=== PATIENT | male | born 1940 | race Caucasian/White ===

== ENCOUNTER 2017-06-29 10:09 | Day surgery (SDC) | payer OTHER ==
[2017-06-29] MEDS ORDERED: ceFAZolin 2 GM/SWFI 2 GM/20 ML SYR IVP ONE (10:35)
[2017-06-29] MEDS ORDERED: LR 1,000 ML IV ONE (10:36)
[2017-06-29 10:42] VITALS: PULSE 86
[2017-06-29] MEDS ORDERED: MINERAL OIL 10 ML VIAL ONE (11:42)
[2017-06-29] MEDS ORDERED: BUPIVACAINE 0.5% 30 ML SDV ONE (11:42)
[2017-06-29] MEDS ORDERED: THROMBIN (BOVINE) 20,000 UNIT SPRAY TP ONE (11:42)
--- NOTE | 2017-06-29 13:31 | PDHPUP ---
History & Physical Update H&P update statement: This history and physical update is based on an assessment of the patient which was completed after admission or registration (within 24 hours), but prior to the surgery/procedure. H&P update: H&P reviewed & patient examined, no change in patient's condition since H&P completed
--- NOTE | 2017-06-29 14:29 | PDANEPAE ---
ANE History of Present Illness debridement of R ankle wound ANE Past Medical History - Cardiovascular History Hx Hypertension: No Hx Arrhythmias: No Hx Chest Pain: No Hx Coronary Artery / Peripheral Vascular Disease: No Hx CHF / Valvular Disease: No Hx Palpitations: No - Pulmonary History Hx COPD: No Hx Asthma/Reactive Airway Disease: No Hx Recent Upper Respiratory Infection: No Hx Oxygen in Use at Home: No Hx Sleep Apnea: No Sleep Apnea Screening Result - Last Documented: Negative - Neurologic History Hx Cerebrovascular Accident: No Hx Seizures: No Hx Dementia: No - Endocrine History Hx Diabetes: No Hypothyroid: No Obesity: no - Renal History Hx Renal Disorders: No - Liver History Hx Hepatic Disorders: No - Neurological & Psychiatric Hx Hx Neurological and Psychiatric Disorders: No - Cancer History Hx Cancer: No - Congenital Disorder History Hx Congenital Disorders: No - GI History GERD: no Hx Gastrointestinal Disorders: No Gastrointestinal History Comment: HX OF COLONOSCOPIES - Other Health History Other Health History: WEARS GLASSES. rheumatoid arthritis. PRP - Chronic Pain History Chronic Pain: No - Surgical History Prior Surgeries: COLONOSCOPIES. CATARACT SURGERY 2014- RIGHT. HERNIA REPAIR X2 1992, 2005 ANE Review of Systems Review of Systems: - Exercise capacity METS (RN): 4 METS ANE Patient History - Allergies Allergies/Adverse Reactions: No Known Allergies Allergy (Verified 06/28/17 11:09) - Home Medications Home Medications: Methotrexate 06/28/17 [Last Taken Unknown] - NPO status NPO Since - Liquids (Date): 06/29/17 NPO Since - Liquids (Time): 08:00 NPO Since - Solids (Date): 06/28/17 NPO Since - Solids (Time): 22:00 - Anes Hx Anes Hx: no prior problems - Smoking Hx Smoking Status: Former smoker - Alcohol Use Alcohol Use: Rarely - Family Anes Hx Family Anes Hx: none Family Hx Anesthesia Complications: NONE ANE Labs/Vital Signs - Vital Signs Blood Pressure: 150/95 Heart Rate: 86 Respiratory Rate: 18 O2 Sat (%): 96 Height: 173.36 cm Weight: 69.853 kg ANE Physical Exam - Airway Mallampati Score: Class 1 Mouth exam: normal dental/mouth exam - Pulmonary Pulmonary: clear to auscultation - Cardiovascular Cardiovascular: regular rate and rhythym - ASA Status ASA Status: III ANE Anesthesia Plan Anesthesia Plan: GA w LMA
[2017-06-29] MEDS ORDERED: PROPOFOL 200 MG/20 ML VIAL ONE ×2 (14:50→15:02)
[2017-06-29] MEDS ORDERED: fentaNYL 100 MCG/2 ML INJ ONE (14:50)
[2017-06-29] MEDS ORDERED: DEXAMETHASONE 4 MG/ML VIAL ONE (14:51)
[2017-06-29] MEDS ORDERED: ONDANSETRON 4 MG/2 ML VIAL ONE (15:11)
[2017-06-29] MEDS ORDERED: PHENYLEPHRINE HCL 100 MCG/ML SYR ONE (15:18)
[2017-06-29] MEDS ORDERED: HYDROCODONE/APAP 5/325 TAB PO PRN (15:21)
[2017-06-29] MEDS ORDERED: NALOXONE HCL 0.4 MG/ML INJ IVP PRN (15:21)
[2017-06-29] MEDS ORDERED: fentaNYL 100 MCG/2 ML INJ IVP PRN (15:21)
--- NOTE | 2017-06-29 15:26 | POSTOPPROG ---
Post Op Note Date of Operation: 06/29/17 Surgeon: Rehana Atkinson Anesthesiologist: guevara Anesthesia: GET(General Endotracheal) Pre-op Diagnosis: chronic traumatic wound lle Post-op Diagnosis: same Indication: 77 yo with chronic traumatic wound Procedure: debride and stsg Findings: 6x4x0.5 Inf/Abcess present in the surg proc area at time of surgery?: No Depth: Superfical (Skin SQ) EBL: Minimal Drains: Wound Vac
--- NOTE | 2017-06-29 15:52 | CPEKG ---
Heart Rate: 78 RR Interval: 769 P-R Interval: 200 QRSD Interval: 98 QT Interval: 416 QTC Interval: 474 P Hobbs: 86 QRS Hobbs: 83 T Wave Hobbs: 67 EKG Severity - ABNORMAL ECG - EKG Impression: SINUS RHYTHM EKG Impression: VENTRICULAR TRIGEMINY EKG Impression: BORDERLINE RIGHT AXIS DEVIATION Electronically Signed By: Shabbir Astorga 30-Jun-2017 13:25:29
--- NOTE | 2017-06-29 16:09 | POSTANESTH ---
Post Anesthetic Evaluation Cardiovascular Status: Other, See Comment Respiratory Status: Normal, Stable Level of Consciousness/Mental Status: Can Participate in Eval Pain Control: Adequate, Prn Tx Ordered Nausea/Vomiting Control: Adequate, Prn Tx Ordered Complications Possibly Related to Anesthesia: None Noted (Pt noted to have PVC' s on EKG; also with episode of sudden narrow complex tachycardia at a rate of about 115 with spontaneously resolved upon emergence from anesthesia. In PACU, patient denies any chest pain, SOB, comfortable and orientedx3. EKG shows ventricular trigeminy, without ST or T changes. Discussed with patient: possibly anesthesia related, but recommended f/u with primary MD for further evaluation.)
[2017-06-29 16:31] VITALS: BP 157/81; RESP 16; O2SAT 91
[2017-06-29 17:02] VITALS: TEMP 98.2
--- NOTE | 2017-06-30 08:49 | GOP ---
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 ANESTHESIA: General. ANESTHESIOLOGIST: Thomas Leblanc MD PREOPERATIVE DIAGNOSIS: Traumatic wound, left lower extremity. POSTOPERATIVE DIAGNOSIS: Traumatic wound, left lower extremity. PROCEDURE PERFORMED: Debridement, skin, soft tissue to the level of subcutaneous tissue with split-t hickness skin graft. FINDINGS: The wound measures 6 x 4 x 0.2 cm. ESTIMATED BLOOD LOSS: 10 cc. INDICATIONS: The patient is a 77-year-old who developed a traumatic wound on his left lower extremit y. He underwent aggressive debridement and wound VAC placement. He is ready for split-thickness ski n grafting. DESCRIPTION OF PROCEDURE: The patient was brought into the operating room, placed supine on the tabl e. General anesthesia was administered. His left leg and thigh were prepped and draped in the usual sterile fashion. I debrided the wound with a knife to reduce the biofilm. The wound measured 6 x 4 x 0.1 cm. I then obtained a split-thickness skin graft using the Tyron dermatome at the level of o ne twelve-thousandth of an inch from the thigh. An epinephrine-soaked sponge was applied to the thig h. I hand pie-crusted the graft and stapled it into place. Adaptic Touch and the wound VAC were stanley luis on the site. Hemostasis achieved at the donor site, and Allevyn was placed. He tolerated the pr ocedure well. /[id number]/MODL
== END 2017-06-29 16:40 | disposition home or self-care (01) ==
LOC: FSGY 10:09
PROVIDERS: ATTEND Surgery
DX: S71.102A Unspecified open wound, left thigh, initial encounter (principal); X58.XXXA Exposure to other specified factors, initial encounter
CPT/HCPCS: J0171; J0690; J1100; J2370; J2405; J2704; J3010

== ENCOUNTER → 2018-07-09 | Outpatient (CLI) | payer OTHER | LOC: BMCIMAGING 09:11 | PROVIDERS: ATTEND Internal Medicine Rheumatology | DX: M05.89 Other rheumatoid arthritis with rheumatoid factor of multiple sites (principal); M20.11 Hallux valgus (acquired), right foot; M20.12 Hallux valgus (acquired), left foot ==